=== PATIENT | female | born 1985 ===

== ENCOUNTER 2020-08-07 20:18 | Inpatient (IN) | payer BC ==
[2020-08-07] MEDS ORDERED: Sodium Chloride 0.9% 10 ML SDV IV PRN (21:12)
[2020-08-07] MEDS ORDERED: Tranexamic Acid 1,000 MG in Sodium Chloride 0.9% 100 ML IV PRN (21:12)
[2020-08-07] MEDS ORDERED: Sodium Chloride 0.9% 2.5 ML Syringe FLUSH PRN (21:12)
[2020-08-07] MEDS ORDERED: Carboprost Tromethamine 250 MCG/1 ML Amp IM PRN (21:12)
[2020-08-07] MEDS ORDERED: Sodium Chloride 0.9% 10 ML Syringe FLUSH PRN (21:12)
[2020-08-07] MEDS ORDERED: Methylergonovine 0.2 MG/1 ML Amp IM PRN (21:12)
[2020-08-07] MEDS ORDERED: Lidocaine 1% 50 ML MDV INJECT PRN (21:12)
[2020-08-07] MEDS ORDERED: Water For Irrigation,Sterile 1,000 ML Container IRR PRN (21:12)
[2020-08-07] MEDS ORDERED: Butorphanol 1 MG/ML SDV IVPUSH PRN (21:12)
[2020-08-07] MEDS ORDERED: Nalbuphine 10 MG/1 ML Vial IVPUSH PRN (21:12)
[2020-08-07] MEDS ORDERED: Ondansetron 4 MG/2 ML SDV IVPUSH PRN (21:12)
[2020-08-07] MEDS ORDERED: Misoprostol 200 MCG Tab PO PRN (21:12)
[2020-08-07] MEDS ORDERED: Oxytocin/0.9 % Sodium Chloride 30 UNIT/500 ML BAG IV SCH ×2 (21:15→21:30)
[2020-08-07] MEDS ORDERED: Misoprostol 25 MCG (1/4 of 100 MCG) Tab PO PRN (21:19)
[2020-08-07] MEDS ORDERED: Misoprostol 25 MCG (1/4 of 100 MCG) Tab VAG PRN (21:19)
[2020-08-07] MEDS ORDERED: Terbutaline 1 MG/ML SDV SUBCUT PRN (21:19)
--- NOTE | 2020-08-08 00:03 | PCM.LDHP ---
L&D History of Present Illness - General Date of Service: 08/07/20 Admit Problem/Dx: Patient Status Order with Admit Dx/Problem 08/07/20 21:13 Patient Status [ADT] Routine Admission Diagnosis/Problem Admission Diagnosis/Problem 08/07/20 23:56 presenting to L&D for induction of labor at 39 4/7 weeks (ALEXANDER: 08/10/20 by ultrasound) due to gallstones. 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 Most recent growth ultrasound on 07/13/20 noted EFW 3100 grams. Vaginal exam in the office on 08/08/20 noted 2-3cm/60%/-1, soft, mid-position. GBS negative; O+; rubella immune. Source of Information: Patient History Limitations: Reports: No Limitations - Related Data Allergies/Adverse Reactions: Allergies Allergy/AdvReac Type Severity Reaction Status Date / Time No Known Allergies Allergy Verified 04/27/15 04:36 Past Medical History - Past Health History Medical/Surgical History: Denies Medical/Surgical History HEENT History: Reports: Other (See Below) Other HEENT History: Colds Other Cardiovascular History: hypertension at end of /states not preeclampysia. 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: Reports: Polycystic Ovaries, Musculoskeletal History: Reports: None Neurological History: Reports: None Psychiatric History: Reports: None Endocrine/Metabolic History: Reports: None Hematologic History: Reports: None Immunologic History: Reports: None Oncologic (Cancer) History: Reports: None Dermatologic History: Reports: None - Infectious Disease History Infectious Disease History: Reports: None - Past Surgical History HEENT Surgical History: Reports: Other (See Below) Other HEENT Surgeries/Procedures: bone graft (in the jaw implant) - not finished due to Cardiovascular Surgical History: Reports: None Respiratory Surgical History: Reports: None GI Surgical History: Reports: None Female Surgical History: Reports: None Endocrine Surgical History: Reports: None Neurological Surgical History: Reports: None Musculoskeletal Surgical History: Reports: None Oncologic Surgical History: Reports: None Dermatological Surgical History: Reports: None Social & Family History - Family History Family Medical History: No Pertinent Family History HEENT: Reports: None Cardiac: Reports: Hypertension GI: Reports: None : Reports: None OBGYN: Reports: None Musculoskeletal: Reports: None Endocrine/Metabolic: Reports: Diabetes, type II Hematologic: Reports: None Immunologic: Reports: None Dermatologic: Reports: None - Tobacco Use Tobacco Use Status *Q: Never Tobacco User Second Hand Smoke Exposure: No - Caffeine Use Caffeine Use: Reports: Coffee - Recreational Drug Use Recreational Drug Use: No H&P Review of Systems - Review of Systems: Review Of Systems: See Below General: Reports: No Symptoms HEENT: Reports: No Symptoms Pulmonary: Reports: No Symptoms Cardiovascular: Reports: No Symptoms Gastrointestinal: Reports: No Symptoms Genitourinary: Reports: No Symptoms Musculoskeletal: Reports: No Symptoms Skin: Reports: No Symptoms Psychiatric: Reports: No Symptoms Neurological: Reports: No Symptoms Hematologic/Lymphatic: Reports: No Symptoms Immunologic: Reports: No Symptoms L&D Exam - Exam Exam: See Below - Vital Signs Weight: 223 lb - OB Specific Movement: Active Heart Tones: Present Heart Rate (FHR) Variability: Moderate (6-25 bmp) Presentation: Vertex - Cunningham Score Cunningham Score Cervix Position: Midposition Cunningham Score Consistency: Soft Cunningham Score Effacement: 51-70% Cunningham Score Dilation: 1-2 cm Cunningham Score Infant's Station: -1 ,0 Cunningham Score Total: 8 - Exam General: Alert, Oriented, Cooperative Lungs: Normal Respiratory Effort Cardiovascular: Regular Rate, Regular Rhythm GI/Abdominal Exam: Soft, Non-Tender Rectal Exam: Deferred Genitourinary: Deferred Back Exam: Normal Inspection, Full Range of Motion Extremities: Normal Inspection, Normal Range of Motion, Non-Tender, Normal Capillary Refill Skin: Warm, Dry, Intact Neurological: Normal Gait, Normal Speech, Normal Tone, Sensation Intact Psychiatric: Alert, Normal Affect, Normal Mood - Patient Data Lab Results Last 24 hrs: Laboratory Results - last 24 hr 08/07/20 08/07/20 Range/Units 21:27 21:54 SARS-CoV-2 RNA (YASH) POSITIVE H (NEGATIVE) Blood Type O POSITIVE Antibody Screen NEGATIVE - Problem List (1) Supervision of normal IUP (intrauterine ) in multigravida SNOMED Code(s): 322474300, 245882075, 375528559 ICD Code: Z34.80 - ENCOUNTER FOR SUPRVSN OF NORMAL , UNSP TRIMESTER Status: Acute Priority: High Current Visit: Yes Qualifiers: Trimester: third trimester Qualified Code(s): Z34.83 - Encounter for supervision of other normal , third trimester (2) Elena's thyroiditis SNOMED Code(s): 61027085 ICD Code: E06.3 - AUTOIMMUNE THYROIDITIS Status: Acute Priority: High Current Visit: Yes Problem List Initiated/Reviewed/Updated: Yes Orders Last 24hrs: Active Orders 24 hr Category Date Time Status Patient Status [ADT] Routine ADT 08/07/20 21:13 Active Bedrest Bathroom Privileges [RC] ASDIRECTED Care 08/07/20 21:19 Active Communication Order [RC] ASDIRECTED Care 08/07/20 21:19 Active Communication Order [RC] ASDIRECTED Care 08/07/20 21:19 Active Communication Order [RC] ASDIRECTED Care 08/07/20 21:19 Active Heart Tones [RC] CONTINUOUS Care 08/07/20 21:13 Active Non Stress Test [RC] PER UNIT ROUTINE Care 08/07/20 21:13 Active May Shower [RC] ASDIRECTED Care 08/07/20 21:13 Active Notify Provider [RC] PRN Care 08/07/20 21:13 Active Notify Provider [RC] PRN Care 08/07/20 21:19 Active Notify Provider [RC] PRN Care 08/07/20 21:19 Active Notify Provider [RC] STAT Care 08/07/20 21:19 Active Oxygen Therapy [RC] ASDIRECTED Care 08/07/20 21:19 Active Up ad Sybil [RC] ASDIRECTED Care 08/07/20 21:13 Active Vaginal Exam [RC] PRN Care 08/07/20 21:13 Active Vaginal Exam [RC] PRN Care 08/07/20 21:19 Active Vital Signs [RC] PER UNIT ROUTINE Care 08/07/20 21:13 Active Vital Signs [RC] PER UNIT ROUTINE Care 08/07/20 21:19 Active Regular Diet [DIET] Diet 08/07/20 Breakfast Active RPR (SYPHILIS SERO) W/ RFLX [REF] Routine Lab 08/07/20 18:39 Received Butorphanol [Stadol] Med 08/07/20 21:12 Active 1 mg IVPUSH Q1H PRN Carboprost Tromethamine [Hemabate DS] Med 08/07/20 21:12 Active 250 mcg IM ASDIRECTED PRN Lactated Ringers [Ringers, Lactated] 1,000 ml Med 08/07/20 21:15 Active IV ASDIRECTED Lidocaine 1% [Xylocaine 1%] Med 08/07/20 21:12 Active 50 ml INJECT ONETIME PRN Methylergonovine [Methergine] Med 08/07/20 21:12 Active 0.2 mg IM ASDIRECTED PRN Nalbuphine [Nubain] Med 08/07/20 21:12 Active 10 mg IVPUSH Q1H PRN Ondansetron [Zofran] Med 08/07/20 21:12 Active 4 mg IVPUSH Q6H PRN Oxytocin/0.9 % Sodium Chloride [Oxytocin 30 Unit/500 ML Med 08/07/20 21:15 Active -NS] 30 unit in 500 ml IV TITRATE Oxytocin/0.9 % Sodium Chloride [Oxytocin 30 Unit/500 ML Med 08/07/20 21:30 Active -NS] 30 unit in 500 ml IV TITRATE Sodium Chloride 0.9% [Normal Saline] Med 08/07/20 21:12 Active 10 ml IV ASDIRECTED PRN Sodium Chloride 0.9% [Saline Flush] Med 08/07/20 21:12 Active 10 ml FLUSH ASDIRECTED PRN Sodium Chloride 0.9% [Saline Flush] Med 08/07/20 21:12 Active 2.5 ml FLUSH ASDIRECTED PRN Terbutaline [Brethine] Med 08/07/20 21:19 Active 0.25 mg SUBCUT ASDIRECTED PRN Tranexamic Acid [Cyklokapron] 1,000 mg Med 08/07/20 21:12 Active Sodium Chloride 0.9% [Normal Saline] 100 ml IV ONETIME Water For Irrigation,Sterile [Sterile Water for Med 08/07/20 21:12 Active Irrigation] 1,000 ml IRR ASDIRECTED PRN miSOPROStoL [Cytotec] Med 08/07/20 21:12 Active 200 mcg PO ONETIME PRN miSOPROStoL [Cytotec] Med 08/07/20 21:19 Active 25 mcg PO Q4H PRN miSOPROStoL [Cytotec] Med 08/07/20 21:19 Active 25 mcg VAG Q4H PRN Scalp Electrode [WOMSER] Per Unit Routine Oth 08/07/20 21:13 Ordered Medication Administration Instruction [OM.PC] Q3H Oth 08/07/20 21:30 Ordered Peripheral IV Insertion Adult [OM.PC] Routine Oth 08/07/20 21:13 Ordered Resuscitation Status Routine Resus Stat 08/07/20 21:12 Ordered Medication Orders Butorphanol Tartrate (Butorphanol 1 Mg/Ml Sdv) 1 mg IVPUSH Q1H PRN PRN Reason: Pain Carboprost Tromethamine (Carboprost Tromethamine 250 Mcg/1 Ml Amp) 250 mcg IM ASDIRECTED PRN PRN Reason: Post Hemorrhage Oxytocin/Sodium Chloride (Oxytocin 30 Unit/500 Ml-Ns) 30 unit in 500 mls @ 999 mls/hr IV TITRATE LACHO Tranexamic Acid 1,000 mg/ (Sodium Chloride) 110 mls @ 660 mls/hr IV ONETIME PRN PRN Reason: Bleeding Lactated Ringer's (Ringers, Lactated) 1,000 mls @ 150 mls/hr IV ASDIRECTED LACHO Oxytocin/Sodium Chloride (Oxytocin 30 Unit/500 Ml-Ns) 30 unit in 500 mls @ 2 mls/hr IV TITRATE LACHO; Protocol Lidocaine HCl (Lidocaine 1% 50 Ml Mdv) 50 ml INJECT ONETIME PRN PRN Reason: Laceration repair Methylergonovine Maleate (Methylergonovine 0.2 Mg/1 Ml Amp) 0.2 mg IM ASDIRECTED PRN PRN Reason: Post Hemorrhage Misoprostol (Misoprostol 200 Mcg Tab) 200 mcg PO ONETIME PRN PRN Reason: Post Hemorrhage Misoprostol (Misoprostol 25 Mcg (1/4 Of 100 Mcg) Tab) 25 mcg PO Q4H PRN PRN Reason: Cervical Ripening Last Admin: 08/07/20 21:58 Dose: 25 mcg Documented by: APOLLO Misoprostol (Misoprostol 25 Mcg (1/4 Of 100 Mcg) Tab) 25 mcg VAG Q4H PRN PRN Reason: Cervical Ripening Last Admin: 08/07/20 22:00 Dose: 25 mcg Documented by: APOLLO Nalbuphine HCl (Nalbuphine 10 Mg/1 Ml Vial) 10 mg IVPUSH Q1H PRN PRN Reason: Pain (severe 7-10) Ondansetron HCl (Ondansetron 4 Mg/2 Ml Sdv) 4 mg IVPUSH Q6H PRN PRN Reason: Nausea/Vomiting Sodium Chloride (Sodium Chloride 0.9% 10 Ml Syringe) 10 ml FLUSH ASDIRECTED PRN PRN Reason: Keep Vein Open Sodium Chloride (Sodium Chloride 0.9% 2.5 Ml Syringe) 2.5 ml FLUSH ASDIRECTED PRN PRN Reason: Keep Vein Open Sodium Chloride (Sodium Chloride 0.9% 10 Ml Sdv) 10 ml IV ASDIRECTED PRN PRN Reason: IV Use Sterile Water (Water For Irrigation,Sterile 1,000 Ml Container) 1,000 ml IRR ASDIRECTED PRN PRN Reason: delivery Terbutaline Sulfate (Terbutaline 1 Mg/Ml Sdv) 0.25 mg SUBCUT ASDIRECTED PRN PRN Reason: Tacysystole Assessment/Plan Comment:: Admit A: presenting to L&D for induction of labor at 39 4/7 weeks ([place]ANDER: 08/10/20 by ultrasound) due to gallstones. 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 Most recent growth ultrasound on 07/13/20 noted EFW 3100 grams. Vaginal exam in the office on 08/08/20 noted 2-3cm/60%/-1, soft, mid-position. GBS negative; O+; rubella immune. P: Admit; induction of labor; cytotec to pitocin PRN; epidural PRN; Dr. Bennett updated.
[2020-08-08] MEDS: Lactated Ringers 1,000 ML IV SCH ×2 (00:30→02:47)
[2020-08-08] MEDS ORDERED: Oxytocin/0.9 % Sodium Chloride 30 UNIT/500 ML BAG ONE (02:12)
[2020-08-08] MEDS ORDERED: Calcium Carbonate 500 MG Tab.Chew PO ONE (02:30)
[2020-08-08] MEDS ORDERED: Calcium Carbonate 500 MG Tab.Chew ONE (02:33)
--- NOTE | 2020-08-08 03:48 | PCM.DEL ---
L & D Note - General Info Date of Service: 08/08/20 Mother's Due Date: 08/10/20 - Delivery Note Labor: Spontaneous Cervical Ripening Method: Misoprostil Delivery Outcome: Livebirth Delivery Method: Spontaneous Vaginal Delivery-Single Presentation: Vertex Nuchal Cord: None Anesthesia Type: None Amniotic Fluid Description: Meconium Stained Episiotomy Type: None Laceration: None Placenta: Intact Cord: 3 Vessels Estimated Blood Loss: 250 Score 1 min: 8 Score 5 min: 9 Second Stage Interventions: Reports: Second Nurse Assessed Progress of Descent, Second Nurse Reviewed Contraction Pattern, Second Nurse Reviewed Heart Tones, Encouragement Given, Pushing Effectively, Pushing Involuntarily, Pushing, Pulls Own Legs Back Delivery Comments (Free Text/Narrative):: viable female; no nuchal; no epidural; head delivered with good pushing, shoulders and body followed easily after; baby immediately to mom's abdomen [id number] for assessment; APGARs 8/9; weight pending; cord doubly clamped after cessation of pulsing, cut by FOB; placenta delivered grossly intact, key; 3VC; EBL 250 mL; pitocin to IVF; perineum intact; fundus firm at umbilicus; mom and baby left in stable condition with nurse at bedside for assessment - General Info Date of Service: 08/08/20 Admission Dx/Problem (Free Text): Patient Status Order with Admit Dx/Problem 08/07/20 21:13 Patient Status [ADT] Routine Admission Diagnosis/Problem Admission Diagnosis/Problem 08/07/20 23:56 presenting to L&D for induction of labor at 39 4/7 weeks ([place]ANDER: 08/10/20 by ultrasound) due to gallstones. 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 Most recent growth ultrasound on 07/13/20 noted EFW 3100 grams. Vaginal exam in the office on 08/08/20 noted 2-3cm/60%/-1, soft, mid-position. GBS negative; O+; rubella immune. Functional Status: Reports: Pain Controlled - Review of Systems General: Reports: No Symptoms HEENT: Reports: No Symptoms Pulmonary: Reports: No Symptoms Cardiovascular: Reports: No Symptoms Gastrointestinal: Reports: No Symptoms Genitourinary: Reports: No Symptoms Musculoskeletal: Reports: No Symptoms Skin: Reports: No Symptoms Neurological: Reports: No Symptoms Psychiatric: Reports: No Symptoms - Patient Data Weight - Most Recent: 223 lb Lab Results Last 24 Hours: Laboratory Results - last 24 hr 08/07/20 08/07/20 Range/Units 21:27 21:54 SARS-CoV-2 RNA (YASH) POSITIVE H (NEGATIVE) Blood Type O POSITIVE Antibody Screen NEGATIVE Med Orders - Current: Current Medications Butorphanol Tartrate (Butorphanol 1 Mg/Ml Sdv) 1 mg IVPUSH Q1H PRN PRN Reason: Pain Carboprost Tromethamine (Carboprost Tromethamine 250 Mcg/1 Ml Amp) 250 mcg IM ASDIRECTED PRN PRN Reason: Post Hemorrhage Oxytocin/Sodium Chloride (Oxytocin 30 Unit/500 Ml-Ns) 30 unit in 500 mls @ 999 mls/hr IV TITRATE LACHO Tranexamic Acid 1,000 mg/ (Sodium Chloride) 110 mls @ 660 mls/hr IV ONETIME PRN PRN Reason: Bleeding Lactated Ringer's (Ringers, Lactated) 1,000 mls @ 150 mls/hr IV ASDIRECTED LACHO Last Admin: 08/08/20 02:47 Dose: 150 mls/hr Documented by: Oxytocin/Sodium Chloride (Oxytocin 30 Unit/500 Ml-Ns) 30 unit in 500 mls @ 2 mls/hr IV TITRATE LACHO; Protocol Lidocaine HCl (Lidocaine 1% 50 Ml Mdv) 50 ml INJECT ONETIME PRN PRN Reason: Laceration repair Methylergonovine Maleate (Methylergonovine 0.2 Mg/1 Ml Amp) 0.2 mg IM ASDIRECTED PRN PRN Reason: Post Hemorrhage Misoprostol (Misoprostol 200 Mcg Tab) 200 mcg PO ONETIME PRN PRN Reason: Post Hemorrhage Misoprostol (Misoprostol 25 Mcg (1/4 Of 100 Mcg) Tab) 25 mcg PO Q4H PRN PRN Reason: Cervical Ripening Last Admin: 08/07/20 21:58 Dose: 25 mcg Documented by: Misoprostol (Misoprostol 25 Mcg (1/4 Of 100 Mcg) Tab) 25 mcg VAG Q4H PRN PRN Reason: Cervical Ripening Last Admin: 08/07/20 22:00 Dose: 25 mcg Documented by: Nalbuphine HCl (Nalbuphine 10 Mg/1 Ml Vial) 10 mg IVPUSH Q1H PRN PRN Reason: Pain (severe 7-10) Ondansetron HCl (Ondansetron 4 Mg/2 Ml Sdv) 4 mg IVPUSH Q6H PRN PRN Reason: Nausea/Vomiting Sodium Chloride (Sodium Chloride 0.9% 10 Ml Syringe) 10 ml FLUSH ASDIRECTED PRN PRN Reason: Keep Vein Open Sodium Chloride (Sodium Chloride 0.9% 2.5 Ml Syringe) 2.5 ml FLUSH ASDIRECTED PRN PRN Reason: Keep Vein Open Sodium Chloride (Sodium Chloride 0.9% 10 Ml Sdv) 10 ml IV ASDIRECTED PRN PRN Reason: IV Use Sterile Water (Water For Irrigation,Sterile 1,000 Ml Container) 1,000 ml IRR ASDIRECTED PRN PRN Reason: delivery Terbutaline Sulfate (Terbutaline 1 Mg/Ml Sdv) 0.25 mg SUBCUT ASDIRECTED PRN PRN Reason: Tacysystole Discontinued Medications Calcium Carbonate/Glycine (Calcium Carbonate 500 Mg Tab.Chew) 500 mg PO ONETIME ONE Stop: 08/08/20 02:31 Last Admin: 08/08/20 02:40 Dose: 500 mg Documented by: Calcium Carbonate/Glycine (Calcium Carbonate 500 Mg Tab.Chew) Confirm Administered Dose 500 mg .ROUTE .STK-MED ONE Stop: 08/08/20 02:34 Oxytocin/Sodium Chloride (Oxytocin 30 Unit/500 Ml-Ns) Confirm Administered Dose 30 unit in 500 mls @ as directed .ROUTE .STK-MED ONE Stop: 08/08/20 02:13 - Exam General: Alert, Oriented, Cooperative, No Acute Distress Lungs: Normal Respiratory Effort Cardiovascular: Regular Rate, Regular Rhythm GI/Abdominal Exam: Soft, Non-Tender (Female) Exam: Normal External Exam Back Exam: Normal Inspection, Full Range of Motion Extremities: Normal Inspection, Normal Range of Motion, Non-Tender, Normal Capillary Refill Skin: Warm, Dry, Intact Neurological: No New Focal Deficit, Normal Gait, Normal Speech, Normal Tone Psy/Mental Status: Alert, Normal Affect, Normal Mood - Problem List & Annotations (1) Supervision of normal IUP (intrauterine ) in multigravida SNOMED Code(s): 968123370, 151279638, 389224402 Code(s): Z34.80 - ENCOUNTER FOR SUPRVSN OF NORMAL , UNSP TRIMESTER Status: Acute Priority: High Current Visit: Yes Qualifiers: Trimester: third trimester Qualified Code(s): Z34.83 - Encounter for supervision of other normal , third trimester (2) Elena's thyroiditis SNOMED Code(s): 56251106 Code(s): E06.3 - AUTOIMMUNE THYROIDITIS Status: Acute Priority: High Current Visit: Yes (3) (spontaneous vaginal delivery) SNOMED Code(s): 625803044 Code(s): O80 - ENCOUNTER FOR FULL-TERM UNCOMPLICATED DELIVERY Status: Acute Priority: High Current Visit: Yes - Problem List Review Problem List Initiated/Reviewed/Updated: Yes - Plan Plan:: Admit A: presenting to L&D for induction of labor at 39 4/7 weeks ([place]ER: 08/10/20 by ultrasound) due to gallstones. 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 Most recent growth ultrasound on 07/13/20 noted EFW 3100 grams. Vaginal exam in the office on 08/08/20 noted 2-3cm/60%/-1, soft, mid-position. GBS negative; O+; rubella immune. P: Admit; induction of labor; cytotec to pitocin PRN; epidural PRN; Dr. Bennett updated. Delivery A: viable female; APGARs 8/9; weight pending; cord doubly clamped after cessation of pulsing, cut by FOB; placenta delivered grossly intact, key; 3VC; EBL 250 mL; pitocin to IVF; perineum intact; fundus firm at umbilicus; mom and baby left in stable condition with nurse at bedside for assessment P: Routine plan of care; Dr. Bennett updated.
[2020-08-08] MEDS ORDERED: oxyCODONE 5 MG Tab PO PRN (03:53)
[2020-08-08] MEDS ORDERED: Benzocaine/Menthol 20%-0.5% Spray 78 GM Cannister TOP PRN (03:53)
[2020-08-08] MEDS ORDERED: Witch Hazel Medicated Pads 40/Jar TOP PRN (03:53)
[2020-08-08] MEDS ORDERED: Bisacodyl 10 MG Supp RECTAL PRN (03:53)
[2020-08-08] MEDS ORDERED: Ibuprofen 400 MG Tab PO PRN (03:53)
[2020-08-08] MEDS ORDERED: Lanolin 100% Cream 7 GM Tube TOP PRN (03:53)
[2020-08-08] MEDS ORDERED: Acetaminophen 500 MG Tab PO PRN ×2 (03:53)
[2020-08-08] MEDS ORDERED: Docusate Sodium 100 MG Cap PO PRN (03:53)
[2020-08-08] MEDS: Ibuprofen 800 MG Tab PO PRN ×2 (05:44→20:39)
[2020-08-08] MEDS: Levothyroxine 100 MCG Tab PO SCH (07:50)
--- NOTE | 2020-08-08 09:39 | PCM.PNPP ---
- General Info Date of Service: 08/08/20 Admission Dx/Problem (Free Text): Patient Status Order with Admit Dx/Problem 08/07/20 21:13 Patient Status [ADT] Routine Admission Diagnosis/Problem Admission Diagnosis/Problem 08/07/20 23:56 presenting to L&D for induction of labor at 39 4/7 weeks (ALEXANDER: 08/10/20 by ultrasound) due to gallstones. 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 Most recent growth ultrasound on 07/13/20 noted EFW 3100 grams. Vaginal exam in the office on 08/08/20 noted 2-3cm/60%/-1, soft, mid-position. GBS negative; O+; rubella immune. Functional Status: Reports: Pain Controlled, Tolerating Diet, Ambulating, Urinating - Review of Systems General: Reports: No Symptoms HEENT: Reports: No Symptoms Pulmonary: Reports: No Symptoms Cardiovascular: Reports: No Symptoms Gastrointestinal: Reports: No Symptoms Genitourinary: Reports: No Symptoms Musculoskeletal: Reports: No Symptoms Skin: Reports: No Symptoms Neurological: Reports: No Symptoms Psychiatric: Reports: No Symptoms - Patient Data Vital Signs - Most Recent: Last Vital Signs Temp 97.5 F 08/08/20 07:55 Pulse 79 08/08/20 07:55 Resp 16 08/08/20 07:55 BP 123/81 08/08/20 07:55 Pulse Ox 99 08/08/20 07:55 Weight - Most Recent: 223 lb Lab Results - Last 24 Hours: Laboratory Results - last 24 hr 08/07/20 08/07/20 Range/Units 21:27 21:54 SARS-CoV-2 RNA (YASH) POSITIVE H (NEGATIVE) Blood Type O POSITIVE Antibody Screen NEGATIVE Med Orders - Current: Current Medications Acetaminophen (Acetaminophen 500 Mg Tab) 500 mg PO Q4H PRN PRN Reason: Pain Acetaminophen (Acetaminophen 500 Mg Tab) 1,000 mg PO Q4H PRN PRN Reason: Pain Last Admin: 08/08/20 05:42 Dose: 1,000 mg Documented by: Benzocaine/Menthol (Benzocaine/Menthol 20%-0.5% [place] 78 Gm Cannister) 78 gm TOP ASDIRECTED PRN PRN Reason: Perineal Comfort Measure Last Admin: 08/08/20 05:46 Dose: 1 canister Documented by: Bisacodyl (Bisacodyl 10 Mg Supp) 10 mg RECTAL ONETIME PRN PRN Reason: Constipation Docusate Sodium (Docusate Sodium 100 Mg Cap) 100 mg PO BID PRN PRN Reason: Constipation Last Admin: 08/08/20 05:42 Dose: 100 mg Documented by: Emollient Ointment (Lanolin 100% Cream 7 Gm Tube) 0 gm TOP ASDIRECTED PRN PRN Reason: Sore Nipples Ibuprofen (Ibuprofen 400 Mg Tab) 400 mg PO Q4H PRN PRN Reason: Pain Ibuprofen (Ibuprofen 800 Mg Tab) 800 mg PO Q6H PRN PRN Reason: Pain Last Admin: 08/08/20 05:44 Dose: 800 mg Documented by: Levothyroxine Sodium (Levothyroxine 100 Mcg Tab) 100 mcg PO ACBREAKFAST LACHO Last Admin: 08/08/20 07:50 Dose: 100 mcg Documented by: Oxycodone HCl (Oxycodone 5 Mg Tab) 5 mg PO Q2H PRN PRN Reason: Pain Witch Kathrine (Witch Kathrine Medicated Pads 40/Jar) 1 pad TOP ASDIRECTED PRN PRN Reason: comfort care Last Admin: 08/08/20 05:45 Dose: 1 tub Documented by: Discontinued Medications Butorphanol Tartrate (Butorphanol 1 Mg/Ml Sdv) 1 mg IVPUSH Q1H PRN PRN Reason: Pain Calcium Carbonate/Glycine (Calcium Carbonate 500 Mg Tab.Chew) 500 mg PO ONETIME ONE Stop: 08/08/20 02:31 Last Admin: 08/08/20 02:40 Dose: 500 mg Documented by: Calcium Carbonate/Glycine (Calcium Carbonate 500 Mg Tab.Chew) Confirm Administered Dose 500 mg .ROUTE .STK-MED ONE Stop: 08/08/20 02:34 Carboprost Tromethamine (Carboprost Tromethamine 250 Mcg/1 Ml Amp) 250 mcg IM ASDIRECTED PRN PRN Reason: Post Hemorrhage Oxytocin/Sodium Chloride (Oxytocin 30 Unit/500 Ml-Ns) 30 unit in 500 mls @ 999 mls/hr IV TITRATE LACHO Tranexamic Acid 1,000 mg/ (Sodium Chloride) 110 mls @ 660 mls/hr IV ONETIME PRN PRN Reason: Bleeding Lactated Ringer's (Ringers, Lactated) 1,000 mls @ 150 mls/hr IV ASDIRECTED LACHO Last Admin: 08/08/20 02:47 Dose: 150 mls/hr Documented by: Oxytocin/Sodium Chloride (Oxytocin 30 Unit/500 Ml-Ns) 30 unit in 500 mls @ 2 mls/hr IV TITRATE LACHO; Protocol Oxytocin/Sodium Chloride (Oxytocin 30 Unit/500 Ml-Ns) Confirm Administered Dose 30 unit in 500 mls @ as directed .ROUTE .K-MED ONE Stop: 08/08/20 02:13 Lidocaine HCl (Lidocaine 1% 50 Ml Mdv) 50 ml INJECT ONETIME PRN PRN Reason: Laceration repair Methylergonovine Maleate (Methylergonovine 0.2 Mg/1 Ml Amp) 0.2 mg IM ASDIRECTED PRN PRN Reason: Post Hemorrhage Misoprostol (Misoprostol 200 Mcg Tab) 200 mcg PO ONETIME PRN PRN Reason: Post Hemorrhage Misoprostol (Misoprostol 25 Mcg (1/4 Of 100 Mcg) Tab) 25 mcg PO Q4H PRN PRN Reason: Cervical Ripening Last Admin: 08/07/20 21:58 Dose: 25 mcg Documented by: Misoprostol (Misoprostol 25 Mcg (1/4 Of 100 Mcg) Tab) 25 mcg VAG Q4H PRN PRN Reason: Cervical Ripening Last Admin: 08/07/20 22:00 Dose: 25 mcg Documented by: Nalbuphine HCl (Nalbuphine 10 Mg/1 Ml Vial) 10 mg IVPUSH Q1H PRN PRN Reason: Pain (severe 7-10) Ondansetron HCl (Ondansetron 4 Mg/2 Ml Sdv) 4 mg IVPUSH Q6H PRN PRN Reason: Nausea/Vomiting Sodium Chloride (Sodium Chloride 0.9% 10 Ml Syringe) 10 ml FLUSH ASDIRECTED PRN PRN Reason: Keep Vein Open Sodium Chloride (Sodium Chloride 0.9% 2.5 Ml Syringe) 2.5 ml FLUSH ASDIRECTED PRN PRN Reason: Keep Vein Open Sodium Chloride (Sodium Chloride 0.9% 10 Ml Sdv) 10 ml IV ASDIRECTED PRN PRN Reason: IV Use Sterile Water (Water For Irrigation,Sterile 1,000 Ml Container) 1,000 ml IRR ASDIRECTED PRN PRN Reason: delivery Terbutaline Sulfate (Terbutaline 1 Mg/Ml Sdv) 0.25 mg SUBCUT ASDIRECTED PRN PRN Reason: Tacysystole - Infant Interaction Infant Disposition, : Kendall in Room with Family Support Person: - Recovery Exam Fundal Tone: Firm Fundal Level: At Umbilicus Fundal Placement: Midline Lochia Amount: Small Lochia Color: Rubra/Red Perineum Description: Intact, Minimal Bruising/Swelling Episiotomy/Laceration: None Bladder Status: Voiding Urinary Elimination: Voided - Exam General: Alert, Oriented, Cooperative, No Acute Distress Lungs: Normal Respiratory Effort Cardiovascular: Regular Rate, Regular Rhythm GI/Abdominal Exam: Soft, Non-Tender Extremities: Normal Inspection, Normal Range of Motion, Non-Tender, Normal Capillary Refill Skin: Warm, Dry, Intact Neurological: No New Focal Deficit, Normal Speech, Normal Tone, Strength Equal Bilateral, Sensation Intact Psy/Mental Status: Alert, Normal Affect, Normal Mood - Problem List & Annotations (1) Supervision of normal IUP (intrauterine ) in multigravida SNOMED Code(s): 356618118, 188232773, 430879777 Code(s): Z34.80 - ENCOUNTER FOR SUPRVSN OF NORMAL , UNSP TRIMESTER Status: Acute Priority: High Current Visit: Yes Qualifiers: Trimester: third trimester Qualified Code(s): Z34.83 - Encounter for supervision of other normal , third trimester (2) Elena's thyroiditis SNOMED Code(s): 29014645 Code(s): E06.3 - AUTOIMMUNE THYROIDITIS Status: Acute Priority: High Current Visit: Yes (3) (spontaneous vaginal delivery) SNOMED Code(s): 377032423 Code(s): O80 - ENCOUNTER FOR FULL-TERM UNCOMPLICATED DELIVERY Status: Acute Priority: High Current Visit: Yes - Problem List Review Problem List Initiated/Reviewed/Updated: Yes - My Orders Last 24 Hours: My Active Orders 08/08/20 03:53 Patient Status [ADT] Routine May Shower [RC] ASDIRECTED Up ad Sybil [RC] ASDIRECTED Vital Signs [RC] PER UNIT ROUTINE Acetaminophen [Tylenol Extra Strength] 1,000 mg PO Q4H PRN Acetaminophen [Tylenol Extra Strength] 500 mg PO Q4H PRN Benzocaine/Menthol [Dermoplast Pain Relief 20%-0.5% [place]] 78 gm TOP ASDIRECTED PRN Docusate Sodium [Colace] 100 mg PO BID PRN Ibuprofen [Motrin] 400 mg PO Q4H PRN Ibuprofen [Motrin] 800 mg PO Q6H PRN Lanolin [Lansinoh HPA] See Dose Instructions TOP ASDIRECTED PRN bisacodyL [Dulcolax] 10 mg RECTAL ONETIME PRN oxyCODONE 5 mg PO Q2H PRN witch Kathrine [Tucks] 1 pad TOP ASDIRECTED PRN Assess Lochia [WOMSER] Per Unit Routine Assess Uterine Involution [WOMSER] Per Unit Routine Peripheral IV Discontinue [OM.PC] Routine Resuscitation Status Routine 08/08/20 Breakfast Guest Tray [DIET] Regular Diet [DIET] 08/08/20 07:30 Levothyroxine [Synthroid] 100 mcg PO ACBREAKFAST 08/09/20 05:11 HEMOGLOBIN/HEMATOCRIT,HH [HEME] Timed - Plan Plan:: Admit A: presenting to L&D for induction of labor at 39 4/7 weeks (ALEXANDER: 08/10/20 by ultrasound) due to gallstones. 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 Most recent growth ultrasound on 07/13/20 noted EFW 3100 grams. Vaginal exam in the office on 08/08/20 noted 2-3cm/60%/-1, soft, mid-position. GBS negative; O+; rubella immune. P: Admit; induction of labor; cytotec to pitocin PRN; epidural PRN; Dr. Bennett updated. Delivery A: viable female; APGARs 8/9; weight pending; cord doubly clamped after cessation of pulsing, cut by FOB; placenta delivered grossly intact, key; 3VC; EBL 250 mL; pitocin to IVF; perineum intact; fundus firm at umbilicus; mom and baby left in stable condition with nurse at bedside for assessment P: Routine plan of care; Dr. Bennett updated. PP Day 1 A: Doing well, bonding well with baby. No concerns/questions at this time. Ambulating, urinating, and tolerating diet. P: Routine plan of care; Dr. Bennett updated.
[2020-08-09] MEDS: Levothyroxine 100 MCG Tab PO SCH (08:10)
[2020-08-09 09:07] VITALS: BP 125/78; PULSE 72
--- NOTE | 2020-08-09 09:49 | PCM.DCSUM1 ---
Discharge Summary - Hospital Course Free Text/Narrative:: Discharge home with infant. Follow up in the clinic in six weeks for routine visit; sooner, if needed. Diagnosis: Stroke: No Modified [place] Scale: No Symptoms at All Modified [place] Scale Score: 0 - Discharge Data Discharge Date: 08/09/20 Discharge Disposition: Home, Self-Care 01 Condition: Good - Referral to Home Health Primary Care Physician: PCP None - Discharge Diagnosis/Problem(s) (1) Supervision of normal IUP (intrauterine ) in multigravida SNOMED Code(s): 787740567, 348205409, 418430929 ICD Code: Z34.80 - ENCOUNTER FOR SUPRVSN OF NORMAL , UNSP TRIMESTER Status: Acute Priority: High Current Visit: Yes Qualifiers: Trimester: third trimester Qualified Code(s): Z34.83 - Encounter for supervision of other normal , third trimester (2) Elena's thyroiditis SNOMED Code(s): 99506146 ICD Code: E06.3 - AUTOIMMUNE THYROIDITIS Status: Acute Priority: High Current Visit: Yes (3) (spontaneous vaginal delivery) SNOMED Code(s): 846424539 ICD Code: O80 - ENCOUNTER FOR FULL-TERM UNCOMPLICATED DELIVERY Status: Acute Priority: High Current Visit: Yes - Patient Instructions Diet: Regular Diet as Tolerated, Drink 8-10+ Glasses/Day Activity: As Tolerated, No Strenuous Activities, Rest and Relax Today Driving: May Drive Today Showering/Bathing: May Shower Notify Provider of: Fever, Increased Pain, Swelling and Redness, Drainage, Nausea and/or Vomiting - Discharge Plan *PRESCRIPTION DRUG MONITORING PROGRAM REVIEWED*: Not Applicable *COPY OF PRESCRIPTION DRUG MONITORING REPORT IN PATIENT MAHESH: Not Applicable Prescriptions/Med Rec: Ibuprofen [Motrin] 800 mg PO Q6H PRN #90 tablet PRN Reason: Pain Home Medications: Home Meds Ibuprofen [Motrin] 800 mg PO Q6H PRN #90 tablet 08/09/20 [Rx] Oxygen Therapy Mode: Room Air - Discharge Summary/Plan Comment DC Time >30 min.: Yes - General Info Date of Service: 08/09/20 Functional Status: Reports: Pain Controlled, Tolerating Diet, Ambulating, Uri nating - Review of Systems General: Reports: No Symptoms HEENT: Reports: No Symptoms Pulmonary: Reports: No Symptoms Cardiovascular: Reports: No Symptoms Gastrointestinal: Reports: No Symptoms Genitourinary: Reports: No Symptoms Musculoskeletal: Reports: No Symptoms Skin: Reports: No Symptoms Neurological: Reports: No Symptoms Psychiatric: Reports: No Symptoms - Patient Data Vitals - Most Recent: Last Vital Signs Temp 97.2 F 08/09/20 09:00 Pulse 72 08/09/20 09:00 Resp 20 08/09/20 09:00 BP 125/78 08/09/20 09:00 Pulse Ox 98 08/09/20 09:00 Weight - Most Recent: 223 lb Lab Results - Last 24 hrs: Laboratory Results - last 24 hr 08/09/20 Range/Units 03:10 Hgb 12.0 (12.0-16.0) g/dL Hct 35.5 L (36.0-46.0) % Med Orders - Current: Current Medications Acetaminophen (Acetaminophen 500 Mg Tab) 500 mg PO Q4H PRN PRN Reason: Pain Acetaminophen (Acetaminophen 500 Mg Tab) 1,000 mg PO Q4H PRN PRN Reason: Pain Last Admin: 08/08/20 05:42 Dose: 1,000 mg Documented by: Benzocaine/Menthol (Benzocaine/Menthol 20%-0.5% [place] 78 Gm Cannister) 78 gm TOP ASDIRECTED PRN PRN Reason: Perineal Comfort Measure Last Admin: 08/08/20 05:46 Dose: 1 canister Documented by: Bisacodyl (Bisacodyl 10 Mg Supp) 10 mg RECTAL ONETIME PRN PRN Reason: Constipation Docusate Sodium (Docusate Sodium 100 Mg Cap) 100 mg PO BID PRN PRN Reason: Constipation Last Admin: 08/08/20 05:42 Dose: 100 mg Documented by: Emollient Ointment (Lanolin 100% Cream 7 Gm Tube) 0 gm TOP ASDIRECTED PRN PRN Reason: Sore Nipples Ibuprofen (Ibuprofen 400 Mg Tab) 400 mg PO Q4H PRN PRN Reason: Pain Ibuprofen (Ibuprofen 800 Mg Tab) 800 mg PO Q6H PRN PRN Reason: Pain Last Admin: 08/08/20 20:39 Dose: 800 mg Documented by: Levothyroxine Sodium (Levothyroxine 100 Mcg Tab) 100 mcg PO ACBREAKFAST LACHO Last Admin: 08/09/20 08:10 Dose: 100 mcg Documented by: Oxycodone HCl (Oxycodone 5 Mg Tab) 5 mg PO Q2H PRN PRN Reason: Pain Witch Kathrine (Witch Kathrine Medicated Pads 40/Jar) 1 pad TOP ASDIRECTED PRN PRN Reason: comfort care Last Admin: 08/08/20 05:45 Dose: 1 tub Documented by: Discontinued Medications Butorphanol Tartrate (Butorphanol 1 Mg/Ml Sdv) 1 mg IVPUSH Q1H PRN PRN Reason: Pain Calcium Carbonate/Glycine (Calcium Carbonate 500 Mg Tab.Chew) 500 mg PO ONETIME ONE Stop: 08/08/20 02:31 Last Admin: 08/08/20 02:40 Dose: 500 mg Documented by: Calcium Carbonate/Glycine (Calcium Carbonate 500 Mg Tab.Chew) Confirm Administered Dose 500 mg .ROUTE .STK-MED ONE Stop: 08/08/20 02:34 Carboprost Tromethamine (Carboprost Tromethamine 250 Mcg/1 Ml Amp) 250 mcg IM ASDIRECTED PRN PRN Reason: Post Hemorrhage Oxytocin/Sodium Chloride (Oxytocin 30 Unit/500 Ml-Ns) 30 unit in 500 mls @ 999 mls/hr IV TITRATE LACHO Tranexamic Acid 1,000 mg/ (Sodium Chloride) 110 mls @ 660 mls/hr IV ONETIME PRN PRN Reason: Bleeding Lactated Ringer's (Ringers, Lactated) 1,000 mls @ 150 mls/hr IV ASDIRECTED LACHO Last Admin: 08/08/20 02:47 Dose: 150 mls/hr Documented by: Oxytocin/Sodium Chloride (Oxytocin 30 Unit/500 Ml-Ns) 30 unit in 500 mls @ 2 mls/hr IV TITRATE LACHO; Protocol Oxytocin/Sodium Chloride (Oxytocin 30 Unit/500 Ml-Ns) Confirm Administered Dose 30 unit in 500 mls @ as directed .ROUTE .STK-MED ONE Stop: 08/08/20 02:13 Lidocaine HCl (Lidocaine 1% 50 Ml Mdv) 50 ml INJECT ONETIME PRN PRN Reason: Laceration repair Methylergonovine Maleate (Methylergonovine 0.2 Mg/1 Ml Amp) 0.2 mg IM ASDIRECTED PRN PRN Reason: Post Hemorrhage Misoprostol (Misoprostol 200 Mcg Tab) 200 mcg PO ONETIME PRN PRN Reason: Post Hemorrhage Misoprostol (Misoprostol 25 Mcg (1/4 Of 100 Mcg) Tab) 25 mcg PO Q4H PRN PRN Reason: Cervical Ripening Last Admin: 08/07/20 21:58 Dose: 25 mcg Documented by: Misoprostol (Misoprostol 25 Mcg (1/4 Of 100 Mcg) Tab) 25 mcg VAG Q4H PRN PRN Reason: Cervical Ripening Last Admin: 08/07/20 22:00 Dose: 25 mcg Documented by: Nalbuphine HCl (Nalbuphine 10 Mg/1 Ml Vial) 10 mg IVPUSH Q1H PRN PRN Reason: Pain (severe 7-10) Ondansetron HCl (Ondansetron 4 Mg/2 Ml Sdv) 4 mg IVPUSH Q6H PRN PRN Reason: Nausea/Vomiting Sodium Chloride (Sodium Chloride 0.9% 10 Ml Syringe) 10 ml FLUSH ASDIRECTED PRN PRN Reason: Keep Vein Open Sodium Chloride (Sodium Chloride 0.9% 2.5 Ml Syringe) 2.5 ml FLUSH ASDIRECTED PRN PRN Reason: Keep Vein Open Sodium Chloride (Sodium Chloride 0.9% 10 Ml Sdv) 10 ml IV ASDIRECTED PRN PRN Reason: IV Use Sterile Water (Water For Irrigation,Sterile 1,000 Ml Container) 1,000 ml IRR ASDIRECTED PRN PRN Reason: delivery Terbutaline Sulfate (Terbutaline 1 Mg/Ml Sdv) 0.25 mg SUBCUT ASDIRECTED PRN PRN Reason: Tacysystole - Exam General: Reports: Alert, Oriented, Cooperative, No Acute Distress Lungs: Reports: Normal Respiratory Effort Cardiovascular: Reports: Regular Rate, Regular Rhythm GI/Abdominal Exam: Soft, Non-Tender (Female) Exam: Deferred Rectal (Female) Exam: Deferred Back Exam: Reports: Normal Inspection, Full Range of Motion Extremities: Normal Inspection, Normal Range of Motion, Non-Tender, Normal Capillary Refill Skin: Reports: Warm, Dry, Intact Neurological: Reports: No New Focal Deficit, Normal Speech, Normal Tone, Strength Equal Bilateral, Sensation Intact Psy/Mental Status: Reports: Alert, Normal Affect, Normal Mood
== END 2020-08-09 12:40 | disposition home or self-care (01) | DRG 560 ==
LOC: MW.OB 20:18 → MW.OBCHECK 20:18 → MW.OB 21:13 → MW.OBCHECK 21:13 → OBSVTOIN 08-08 03:53 → MW.OB 08-08 06:53
PROVIDERS: ADMIT Obstetrics & Gynecology; ATTEND Obstetrics & Gynecology
PROC: 10E0XZZ Delivery of Products of Conception, External Approach (ICD-10-PCS; principal; 2020-08-08)
PROC: 3E0P7VZ Introduction of Hormone into Female Reproductive, Via Natural or Artificial Opening (ICD-10-PCS; 2020-08-08)
DX: O99.62 Diseases of the digestive system complicating childbirth (principal); Z37.0 Single live birth; K80.80 Other cholelithiasis without obstruction; O99.284 Endocrine, nutritional and metabolic diseases complicating childbirth; E06.3 Autoimmune thyroiditis; O77.0 Labor and delivery complicated by meconium in amniotic fluid; Z3A.39 39 weeks gestation of pregnancy
CPT/HCPCS: 36415; 59025; 59409; 85014; 85018; 86592; 86850; 86900; 86901; A9270-GY; J7120; U0002